=== PATIENT | female | born 1995 | race Caucasian/White ===

== ENCOUNTER 2018-06-04 10:24 | Emergency (ER) | payer OTHER ==
[~2018-06-04] VITALS: Ht 162.6 cm; Wt 63.5 kg
[2018-06-04] MEDS ORDERED: FOLGARD TABLET1 EACH PO (10:35)
== END 2018-06-04 13:56 | disposition home or self-care (01) ==
LOC: ER 10:24
DX: S60.212A Contusion of left wrist, initial encounter (principal); V49.9XXA Car occupant (driver) (passenger) injured in unspecified traffic accident, initial encounter; Y93.89 Activity, other specified; Y92.488 Other paved roadways as the place of occurrence of the external cause; Y99.8 Other external cause status